=== PATIENT | male | born 1955 | race Caucasian/White ===

== ENCOUNTER 2017-02-18 16:02 | Emergency (ER) | payer OTHER ==
[~2017-02-18] VITALS: Ht 180.3 cm; Wt 105.9 kg
--- NOTE | 2017-02-18 16:06 | ED.REPORT ---
HPI-Chest Pain 40 and Over Date of Service Feb 18, 2017 ED Provider: Dr. Hurley A 61 year old male with a history of HTN, sleep apnea, hypercholesterolemia, and appendicitis presents to the ED from [place] c/o bilateral chest pain in ribs onset this morning. Pain is described as aching and radiates into his back a little bit, but does not radiate into arms, neck, or jaw. He visited [facility] today because he needed to follow up after being seen in the emergency department at [facility] in [place] with a diagnosis of fluid overload and prescription for diuretics. He went to the clinic today for outpatient follow- up for the previous ER visit but had no specific complaints per se. He denies any SOB, diaphoresis, or nausea. He denies any history of heart disease. Nursing Notes Stated Complaint: ABNORMAL EKG Nursing Notes Reviewed: Yes Allergies: Uncoded Allergies: MED FOR SADDLE BLOCK (Allergy, Unknown, 02/18/17) General Time Seen by MD: 16:06 Chief Complaint Chest pain Hx Obtained From: Patient, EMS Arrived By: Ambulance Sudden in Onset?: No Onset Occurred: 9 - 12 hours ago (this morning.) Symptom Duration: Since onset Location: : Chest left: Chest right Quality: Aching Radiation: : Back Severity: Current: Moderate Severity: Maximum: Moderate Recent Healthcare: Recent hospitalization (hospitalized 02/15 for volume overload ) Similar Sx Previous: No Past Medical History Past Medical History Notes: Admitted to [place] 02/15 for volume overload, not NV. Past Medical History sleep apnea hypercholesterolemia Appendicitis Denies Hx of SVT, NV Reports: Congestive heart failure, Hypertension, Denies: Cancer, Coronary artery disease, Diabetes mellitus, Stroke Past Surgical History Reports: Appendectomy Family History Family history of ischemic heart disease. Smoking History Never Smoker Social History Alcohol Use: Denies alcohol use Ambulatory Status Independent Review of Systems Respiratory: Denies: Shortness of breath Cardiovascular: Reports: Chest pain GI: Denies: Nausea Musculoskeletal: Reports: Back pain, Denies: Extremity pain Skin: Denies Diaphoresis Complete sys rev & neg: except as marked. Physical Exam Initial Vital Signs Vital Signs (First) Date Time Temp Pulse Resp B/P Pulse Ox O2 Delivery O2 Flow Rate FiO2 02/18/17 16:20 37.0 149 23 115/94 96 Room Air Initial VS: Reviewed General/Constitutional: Awake, Alert Respiratory / Chest: Atraumatic, Breath sounds NL, Breath sounds = bilat, No respiratory distress, No rales, No rhonchi, No wheezing Cardiovascular: Regular rhythm, Heart sounds NL, No gallop, No murmurs, No rubs Heart Rate / Rhythm: Positive: Tachycardia Trace peripheral edema. Abdomen: No guarding, No rebound Skin: Warm, Dry Neurologic: Oriented X3, Speech NL Head / Eyes: Atraumatic, Normocephalic, PERRL, EOMI ENT: Atraumatic, Mucous membranes moist Interpretation & Diagnostics Lab Results Interpretation Result Diagram: 02/18/17 1618 02/18/17 1618 Test 02/18/17 16:18 White Blood Count 11.9th/mm3 (3.8-10.1) Red Blood Count 4.79mil/mm3 (4.40-5.80) Hemoglobin 14.6g/dL (13.8-17.2) Hematocrit 42.4% (41.0-50.0) Mean Corpuscular Volume 88.5fL (81-100) Mean Corpuscular Hemoglobin 30.5pg (27.0-35.0) Mean Corpuscular Hemoglobin Concent 34.4% (32.0-37.0) Red Cell Distribution Width 14.5% (12.3-15.4) Platelet Count 189bil/L (150-400) Neutrophils (%) (Auto) 76.3% (40-74) Lymphocytes (%) (Auto) 9.7% (14-46) Monocytes (%) (Auto) 10.4% (4-12) Eosinophils (%) (Auto) 2.8% (0-5) Basophils (%) (Auto) 0.5% (0-3) Sodium Level 139mEq/L (134-144) Potassium Level 3.0mEq/L (3.5-5.2) Chloride Level 99mEq/L (97-108) Carbon Dioxide Level 22mmol/L (18-29) Blood Urea Nitrogen 18mg/dL (8-27) Creatinine 1.34mg/dL (0.76-1.27) Estimat Glomerular Filtration Rate 58mL/min (>59) Glucose Level 111mg/dL (60-99) Calcium Level 9.1mg/dL (8.5-10.1) Magnesium Level 2.1mg/dL (1.6-2.6) Total Bilirubin 1.0mg/dL (0.0-1.2) Aspartate Amino Transf (AST/SGOT) 18U/L (0-50) Alanine Aminotransferase (ALT/SGPT) 23U/L (0-44) Alkaline Phosphatase 110U/L (25-160) Troponin T < 0.010ug/L (0.0-0.011) Total Protein 6.9g/dL (6.4-8.4) Albumin 3.9g/dL (3.4-5.0) ECG Interpretation ECG Interpretation: Rate is 148. A-flutter. Time: 16:22 Interpreted by: ED physician X-Ray Chest Interpretation Chest Xray Interpretation: IMPRESSION: 1. Cardiomegaly. 2. Questionable right basilar pulmonary nodule versus vascular shadow. Short interval repeat study recommended. Dictated by: Manju Rose M.D. on 02/18/2017 at 17:02 Approved by: Manju Rose M.D. on 02/18/2017 at 17:03 Interpretation / Wet Read by: Interpret - Radiologist Re-Eval/Medical Decision Source of Hx: Old records, EMS Time of Eval: 16:29 Re-Evaluation/Progress Note: Rechecked patient and inquired when chest pain began. Patient reports that chest pain onset this morning. Time of Eval: 17:52 Patient Status: Condition improved Re-Evaluation/Progress Note: Rechecked patient, explained test results, diagnosis, and plan for discharge and follow up with Dr. Perez. Patient understands and agrees with the plan. All questions addressed. 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 Perez who will see patient in two days in her [place] office. She recommends the following changes: Discontinue hydrochlorothiazide Initiate Toprol-XL 50 mg daily Initiate aspirin 325 daily Counseled Regarding: Diagnosis, Lab results, Need for follow-up Discharge & Departure Primary Impression: Atrial flutter Atrial flutter type: unspecified Qualified Code: I48.92 - Unspecified atrial flutter Disposition: Home Discharge Condition All VS Reviewed: Yes Condition: Stable Patient Instructions: Atrial Flutter (ED) Additional Instructions: Follow-up with Dr. Perez on in the [place] office. The office staff will call you with a specific time. Please make the following changes: Discontinue hydrochlorothiazide Initiate Toprol-XL 50 mg daily (a prescription was sent electronically to the [facility] in [place].) Take aspirin, 325 mg daily Follow-up in the emergency department immediately for chest pain, shortness of breath, fainting or other new or worrisome symptoms. Referrals: Eli Perez MD Attestation Portions of this note were transcribed by Jaguar Osman. I, Dr. Hurley personally performed the history, physical exam and medical decision-making; I reviewed and confirmed the accuracy of the information in the transcribed note. Signed by: Noemy Guo, 02/18/2017, 1812. copies to: Eli Perez MD, Kirk H MD Feb 18, 2017 16:06 Jaguar Osman Feb 18, 2017 16:16
[2017-02-18 16:20] VITALS: BP 115/94; PULSE 149; RESP 23; O2SAT 96
[2017-02-18] MEDS ORDERED: Diltiazem 5 mg/mL 5 mL Inj ONE (16:21)
[2017-02-18 16:25] LABS: BASOPHILS % (AUTO) 0.5 % (0-3); EOSINOPHILS % (AUTO) 2.8 % (0-5); MONOCYTES % (AUTO) 10.4 % (4-12); Mean Corpuscular Hemoglobin 30.5 pg (27.0-35.0); Mean Corpuscular Volume 88.5 fL (81-100); NEUTROPHILS % (AUTO) 76.3 % (40-74); Platelet Count 189 bil/L (150-400)
[2017-02-18] MEDS ORDERED: Diltiazem 5 mg/mL 5 mL Inj IVPUSH ONE (16:25)
[2017-02-18 16:52] LABS: TROPONIN T < 0.010 ug/L (0.0-0.011)
[2017-02-18 16:54] VITALS: BP 103/72; PULSE 76; RESP 15; O2SAT 94
[2017-02-18 17:00] LABS: Magnesium 2.1 mg/dL (1.6-2.6)
--- NOTE | 2017-02-18 17:04 | DRSVH ---
PROCEDURE: X-RAY CHEST ONE VIEW, PORTABLE ([id number]) INDICATIONS: Chest pain TECHNIQUE: One view of the chest was acquired. COMPARISON: None. FINDINGS: Surgical changes and devices: None. Lungs and pleura: No pleural effusions or pneumothorax. There is a questionable right basilar pulmon dmitriy nodule versus vascular shadow. The lungs are otherwise clear. Mediastinum: Mediastinal contours appear normal. Heart size is enlarged. Bones and chest wall: No suspicious bony lesions. Overlying soft tissues appear unremarkable. IMPRESSION: 1. Cardiomegaly. 2. Questionable right basilar pulmonary nodule versus vascular shadow. Short interval repeat study re commended. Dictated by: Manju Rose M.D. on 02/18/2017 at 17:02 Approved by: Manju Rose M.D. on 02/18/2017 at 17:03
[2017-02-18] MEDS ORDERED: METO50TA7 PO (18:23)
[2017-02-18 18:57] VITALS: BP 122/84; PULSE 99; RESP 16; O2SAT 97
== END 2017-02-18 18:58 | disposition home or self-care (01) ==
LOC: EDBD 16:02 → SED 16:02
DX: I48.92 Unspecified atrial flutter (principal); I11.0 Hypertensive heart disease with heart failure; I50.9 Heart failure, unspecified